=== PATIENT | male | born 1980 | race African-American/Black ===

== ENCOUNTER 2017-10-28 18:15 | Inpatient (IN) | payer SELFPAY ==
[~2017-10-28] VITALS: Ht 182.9 cm; Wt 75.0 kg
[~2017-10-28 18:15] MED LIST: Z.0.NO CURRENT MEDS
[2017-10-28 18:17] VITALS: BP 161/82; PULSE 60; RESP 17; TEMP 96.9; O2SAT 98
[2017-10-28] MEDS ORDERED: ONDANSETRON HCL 4 MG/2 ML VIAL IV PUSH ONE (18:45)
[2017-10-28] MEDS ORDERED: AMPICILLIN-SULBACTAM INJ 1,500 MG in SODIUM CHLORIDE 0.9% INJ 100 ML IV ONE (18:45)
[2017-10-28] MEDS ORDERED: MORPHINE SULFATE 4 MG/ML INJ IV PUSH ONE (18:45)
[2017-10-28] MEDS ORDERED: SODIUM CHLOR 0.9% 1000 ML INJ 1,000 ML IV SCH ×2 (18:45→21:57)
[2017-10-28 18:52] VITALS: BP 155/86; PULSE 54; RESP 16; O2SAT 99
[2017-10-28] MEDS ORDERED: TETANUS/DIPHTHERIA TOXOID ADULT 0.5 ML VIAL IM ONE (19:00)
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
[2017-10-28 19:15] LABS: AUTOMATED NEUTROPHIL # 2.7 TH/MM3 (1.8-7.7); BASOPHIL % 0.7 % (0.0-2.0); EOSINOPHIL # 0.1 TH/MM3 (0-0.4); EOSINOPHIL % 1.9 % (0.0-4.0); HEMOGLOBIN 14.1 GM/DL (13.0-17.0); LYMPH % 43.5 % (9.0-44.0); LYMPHOCYTE # 2.9 TH/MM3 (1.0-4.8); MEAN CELL VOLUME 89.5 FL (80.0-100.0); MEAN CORPUSCULAR HEMOGLOBIN 30.1 PG (27.0-34.0); MEAN CORPUSCULAR HGB CONC 33.7 % (32.0-36.0); MEAN PLATELET VOLUME 7.7 FL (7.0-11.0); MONO % 12.2 % (0.0-8.0); MONOCYTE # 0.8 TH/MM3 (0-0.9); NEUT % 41.7 % (16.0-70.0); PLATELET COUNT 301 TH/MM3 (150-450); RED BLOOD COUNT 4.69 MIL/MM3 (4.50-5.90); RED CELL DISTRIBUTION WIDTH 14.3 % (11.6-17.2); WHITE BLOOD COUNT 6.6 TH/MM3 (4.0-11.0)
[2017-10-28] MEDS ORDERED: KETOROLAC TROMETHAMINE 30 MG/ML (IVP) VIAL IV PUSH ONE (19:30)
[2017-10-28 19:34] LABS: ALBUMIN 4.1 GM/DL (3.4-5.0); AST (GOT) 26 U/L (15-37); BICARBONATE 27.8 MEQ/L (21.0-32.0); BLOOD UREA NITROGEN 11 MG/DL (7-18); CALCIUM 8.7 MG/DL (8.5-10.1); CHLORIDE 105 MEQ/L (98-107); CREATININE 0.92 MG/DL (0.60-1.30); GLOMERULAR FILTRATION RATE 113 ML/MIN (>89); GLUCOSE,RANDOM 124 MG/DL (74-106); SODIUM (NA) 142 MEQ/L (136-145)
[2017-10-28 19:35] LABS: ALT (GPT) 21 U/L (12-78)
[2017-10-28 19:37] LABS: ALKALINE PHOSPHATASE 71 U/L (45-117); TOTAL BILIRUBIN ADULT 0.5 MG/DL (0.2-1.0); TOTAL PROTEIN 7.5 GM/DL (6.4-8.2)
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
[2017-10-28 19:43] LABS: PROTHROMBIN TIME - PATIENT 10.5 SEC (9.8-11.6)
[2017-10-28 19:45] VITALS: BP 170/89; PULSE 55; RESP 14; RESP 16; O2SAT 100
[2017-10-28] MEDS ORDERED: ONDANSETRON HCL 4 MG/2 ML VIAL IVP PRN (22:00)
[2017-10-28] MEDS ORDERED: NALOXONE HCL 0.4 MG/ML AMP IV PUSH PRN (22:00)
[2017-10-28] MEDS ORDERED: LACTULOSE SYRUP 20 GM/30 ML CUP PO PRN (22:00)
[2017-10-28] MEDS ORDERED: MAGNESIUM HYDROXIDE SUSP 30 ML CUP PO PRN (22:00)
[2017-10-28] MEDS ORDERED: SODIUM CHLORIDE 0.9% FLUSH 10 ML FLUSH IV FLUSH PRN (22:00)
[2017-10-28] MEDS ORDERED: BISACODYL 10 MG SUPP RECTAL PRN (22:00)
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
[2017-10-28] MEDS: NS + KCL 20 MEQ INJ 1,000 ML IV SCH (23:09)
[2017-10-28] MEDS: MORPHINE SULFATE 4 MG/ML INJ IV PUSH PRN (23:10)
[2017-10-29] VITALS: BP 126/74; PULSE 83; RESP 17; TEMP 97.3; O2SAT 98
[2017-10-29] MEDS: MORPHINE SULFATE 4 MG/ML INJ IV PUSH PRN ×2 (03:29→06:24)
[2017-10-29 08:00] VITALS: BP 120/77; PULSE 61; RESP 17; TEMP 98.1; O2SAT 97
[2017-10-29] MEDS: SODIUM CHLORIDE 0.9% FLUSH 10 ML FLUSH IV FLUSH SCH ×2 (08:01→21:00)
[2017-10-29] MEDS: NS + KCL 20 MEQ INJ 1,000 ML IV SCH ×2 (08:21→18:15)
[2017-10-29 08:53] LABS: AUTOMATED NEUTROPHIL # 6.1 TH/MM3 (1.8-7.7); BASOPHIL % 0.2 % (0.0-2.0); EOSINOPHIL % 0.5 % (0.0-4.0); HEMATOCRIT 37.3 % (39.0-51.0); HEMOGLOBIN 12.6 GM/DL (13.0-17.0); LYMPH % 15.1 % (9.0-44.0); LYMPHOCYTE # 1.3 TH/MM3 (1.0-4.8); MEAN CELL VOLUME 89.7 FL (80.0-100.0); MEAN CORPUSCULAR HEMOGLOBIN 30.3 PG (27.0-34.0); MEAN CORPUSCULAR HGB CONC 33.8 % (32.0-36.0); MONO % 10.5 % (0.0-8.0); MONOCYTE # 0.9 TH/MM3 (0-0.9); NEUT % 73.7 % (16.0-70.0); PLATELET COUNT 229 TH/MM3 (150-450); RED BLOOD COUNT 4.16 MIL/MM3 (4.50-5.90); RED CELL DISTRIBUTION WIDTH 14.3 % (11.6-17.2); WHITE BLOOD COUNT 8.3 TH/MM3 (4.0-11.0)
[2017-10-29 09:15] LABS: BICARBONATE 25.2 MEQ/L (21.0-32.0); CREATININE 0.61 MG/DL (0.60-1.30)
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
[2017-10-29 12:00] VITALS: BP 122/72; PULSE 61; RESP 17; TEMP 98; O2SAT 100
[2017-10-29] MEDS ORDERED: PHENYLEPH/NS 1000 MCG/10 ML SYR IV ONE (12:00)
[2017-10-29] MEDS ORDERED: PROPOFOL 200 MG/20 ML AMP IV ONE (12:00)
[2017-10-29] MEDS ORDERED: NEOSTIGMINE 5 MG/5 ML SYRINGE IV PUSH ONE (12:00)
[2017-10-29] MEDS ORDERED: GLYCOPYRROLATE 1 MG/5 ML SYRINGE IV PUSH ONE (12:00)
[2017-10-29] MEDS ORDERED: DEXAMETHASONE SOD PHOS 4 MG/ML VIAL IV ONE (12:00)
[2017-10-29] MEDS ORDERED: LIDOCAINE HCL 1% PF 5 ML SYRINGE OTHER ONE (12:00)
[2017-10-29] MEDS ORDERED: KETOROLAC TROMETHAMINE 30 MG/ML (IVP) VIAL IV PUSH ONE (12:00)
[2017-10-29] MEDS ORDERED: LACTATED RINGER'S 1000 ML INJ 1,000 ML IV ONE (12:00)
[2017-10-29] MEDS ORDERED: ONDANSETRON HCL 4 MG/2 ML VIAL IV ONE (12:00)
[2017-10-29] MEDS ORDERED: SUCCINYLCHOLINE CHLORIDE 100 MG/5 ML SYRINGE IV PUSH ONE (12:00)
[2017-10-29] MEDS ORDERED: ROCURONIUM INJ 50 MG/5 ML SYRINGE IV PUSH ONE (12:00)
[2017-10-29] MEDS ORDERED: METOPROLOL TARTRATE 25 MG TAB PO PRN (14:00)
[2017-10-29] MEDS ORDERED: CHLORHEXIDINE GLUCONATE 2 % 1 PACK (2 CLOTHS) TOPICAL PRN (14:00)
[2017-10-29] MEDS ORDERED: LACTATED RINGER'S 1000 ML IV PRN (14:00)
[2017-10-29] MEDS ORDERED: POVIDONE IODINE 5% (ANTISEPSIS KIT) 4 APPLICATIONS EACH NARE PRN (14:00)
[2017-10-29] MEDS ORDERED: SODIUM CHLORID 0.9% 500 ML IV PRN (14:00)
[2017-10-29] MEDS ORDERED: ceFAZolin INJ 1,000 MG VIAL ONE (14:07)
[2017-10-29] MEDS: LIDOCAINE 1%/EPINEPHrine 1:100,000 SOLN 30 ML VIAL ONE (16:34)
[2017-10-29] MEDS ORDERED: DO NOT ADM ANY ANTICOAGULANT DRUGS PRN (17:26)
[2017-10-29] MEDS ORDERED: MIDAZOLAM HCL 2 MG/2 ML VIAL ONE (17:39)
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
[2017-10-29] MEDS ORDERED: oxyCODONE/ACETAMINOPHEN 7.5 MG/325 MG TAB PO PRN (19:45)
[2017-10-29] MEDS ORDERED: MORPHINE SULFATE 4 MG/ML INJ IV PRN (19:45)
[2017-10-29] MEDS ORDERED: methylPREDNISolone SOD SUCC 125 MG/2 ML VIAL IV ONE (19:45)
[2017-10-29 20:00] VITALS: BP 134/77; PULSE 56; RESP 18; TEMP 98.5; O2SAT 100
[2017-10-29] MEDS: DEXT 5%-NACL 0.9% 1000 ML INJ 1,000 ML IV SCH (20:30)
--- NOTE | 2017-10-29 22:12 | HHI.PR ---
Subjective Remarks Patient seen this morning prior to surgery. Reports pain continues. Denies any chest pain or shortness breath. Denies nausea or vomiting. Last bowel movement 2 days ago.denies constipation. Objective Vital Signs Date Time Temp Pulse Resp B/P (MAP) Pulse Ox O2 Delivery O2 Flow Rate FiO2 10/29/17 20:00 98.5 56 18 134/77 (96) 100 10/29/17 18:15 97.8 62 15 121/60 (80) 99 Room Air 10/29/17 18:00 68 17 123/57 (79) 99 Room Air 10/29/17 17:45 74 18 133/64 (87) 97 Room Air 10/29/17 17:30 77 18 129/62 (84) 99 Room Air 10/29/17 17:25 97.7 72 16 124/63 (83) 100 Simple Mask 6 10/29/17 12:00 98.0 61 17 122/72 (89) 100 10/29/17 08:00 98.1 61 17 120/77 (91) 97 10/29/17 00:00 97.3 83 17 126/74 (91) 98 10/28/17 22:16 I/O 10/28/17 10/28/17 10/28/17 10/29/17 10/29/17 10/29/17 07:00 15:00 23:00 07:00 15:00 23:00 Intake Total 1100 ml 1000 ml 1100 ml Output Total 25 ml Balance 1100 ml 1000 ml 1075 ml Intake IV Total 1100 ml 1000 ml Other 1100 ml Output Estimated Blood Loss 25 ml Result Diagram: 10/29/17 0730 10/29/17 0730 Objective Remarks GENERAL: patient lying in bed. Appears uncomfortable. SKIN: Warm and dry. HEAD: facial bruising. EYES: No scleral icterus. No injection or drainage. NECK: Supple, trachea midline. No JVD. CARDIOVASCULAR: Regular rate and rhythm without murmurs, gallops, or rubs. RESPIRATORY: Breath sounds equal bilaterally. No accessory muscle use. GASTROINTESTINAL: Abdomen soft, non-tender, nondistended. MUSCULOSKELETAL: No cyanosis, or edema. BACK: Nontender without obvious deformity. No CVA tenderness. A/P Assessment and Plan // Multiple mandibular fractures Maxillofacial CT significant for mildly displaced fractures throughout the anterior and left posterior mandible, right nasal bone, left maxillary sinus with hemorrhage in the left maxillary sinus Morphine for pain control OMFS consulted, appreciate assistance N.p.o. = Postoperative repair today 10/29. Postsurgical management as per surgical service. Appreciate assistance. //Hypokalemia NS +20 KCl Monitor BMP = Potassium 3.4 today. Repeat labs tomorrow. FEN NPO Electrolytes: As above NS +20 KCl at 100 cc/hour Discharge Planning pending maxillofacial surgery clearance. Zoran Borden MD October 29, 2017 22:12
[2017-10-30] VITALS: BP 135/72; PULSE 58; RESP 18; TEMP 98.9; O2SAT 100
[2017-10-30] MEDS: ceFAZolin 1,000 MG/NS 100 ML IV SCH ×4 (00:56→07:39)
[2017-10-30] MEDS: NS + KCL 20 MEQ INJ 1,000 ML IV SCH (03:37)
[2017-10-30 04:00] VITALS: BP 130/72; PULSE 60; RESP 18; TEMP 98.7; O2SAT 100
[2017-10-30] MEDS: MORPHINE SULFATE 4 MG/ML INJ IV PUSH PRN ×2 (04:06→11:31)
[2017-10-30] MEDS: DEXT 5%-NACL 0.9% 1000 ML INJ 1,000 ML IV SCH ×2 (05:45→06:49)
[2017-10-30 05:46] LABS: AUTOMATED NEUTROPHIL # 9.9 TH/MM3 (1.8-7.7); BASOPHIL % 0.1 % (0.0-2.0); HEMATOCRIT 38.7 % (39.0-51.0); LYMPH % 3.9 % (9.0-44.0); LYMPHOCYTE # 0.4 TH/MM3 (1.0-4.8); MEAN CELL VOLUME 88.8 FL (80.0-100.0); MEAN CORPUSCULAR HEMOGLOBIN 29.9 PG (27.0-34.0); MEAN CORPUSCULAR HGB CONC 33.7 % (32.0-36.0); MEAN PLATELET VOLUME 8.2 FL (7.0-11.0); MONO % 4.1 % (0.0-8.0); MONOCYTE # 0.4 TH/MM3 (0-0.9); NEUT % 91.9 % (16.0-70.0); PLATELET COUNT 236 TH/MM3 (150-450); RED BLOOD COUNT 4.36 MIL/MM3 (4.50-5.90); WHITE BLOOD COUNT 10.7 TH/MM3 (4.0-11.0)
[2017-10-30 06:22] LABS: BICARBONATE 26.6 MEQ/L (21.0-32.0); CALCIUM 8.3 MG/DL (8.5-10.1); CREATININE 0.7 MG/DL (0.60-1.30); PHOSPHORUS 2.6 MG/DL (2.5-4.9)
[2017-10-30] MEDS: SODIUM CHLORIDE 0.9% FLUSH 10 ML FLUSH IV FLUSH SCH (07:28)
[2017-10-30 08:00] VITALS: BP 131/82; PULSE 54; RESP 16; TEMP 97.3; O2SAT 98
[2017-10-30 12:00] VITALS: BP 133/75; PULSE 56; RESP 16; TEMP 97.2; O2SAT 99
[2017-10-30] MEDS ORDERED: OXYC1SOL5 PO (12:30)
[2017-10-30] MEDS ORDERED: AMOX400S3 PO (12:37)
[2017-11-02] MEDS ORDERED: HYDR1ELX PO (11:15)
--- NOTE | 2017-11-03 11:57 | HHI.PR ---
Subjective Remarks Date of service 10/30/17 Patient seen the morning of 10/30/17. Says he is feeling comfortable. Would like to go home. Objective Result Diagram: 10/30/17 0515 10/30/17 0515 Objective Remarks GENERAL: patient sitting up in bed. Appears uncomfortable. SKIN: Warm and dry. HEAD: facial bruising. EYES: No scleral icterus. No injection or drainage. NECK: Supple, trachea midline. No JVD. CARDIOVASCULAR: Regular rate and rhythm without murmurs, gallops, or rubs. RESPIRATORY: Breath sounds equal bilaterally. No accessory muscle use. GASTROINTESTINAL: Abdomen soft, non-tender, nondistended. MUSCULOSKELETAL: No cyanosis, or edema. BACK: Nontender without obvious deformity. No CVA tenderness. A/P Assessment and Plan // Multiple mandibular fractures Maxillofacial CT significant for mildly displaced fractures throughout the anterior and left posterior mandible, right nasal bone, left maxillary sinus with hemorrhage in the left maxillary sinus Morphine for pain control OMFS consulted, appreciate assistance N.p.o. = Postoperative repair today 10/29. Postsurgical management as per surgical service. Appreciate assistance. = 10/30. Patient doing well. If discharge by maxillofacial surgery. Surgeon recommends course of amoxicillin. Oxycodone suspension prescribed for pain. //Hypokalemia NS +20 KCl Monitor BMP = Potassium 3.4 today. Repeat labs tomorrow. = Resolved after replacement. Hello Discharge Planning discharge home on amoxicillin, oxycodone suspension for pain controlfollow-up with surgeon as outpatient. Zoran Borden MD November 03, 2017 11:56
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
== END 2017-10-30 14:09 | disposition home or self-care (01) | DRG 132 ==
LOC: NEPC 18:15 → EEVIPCON 20:49 → NEDA 20:49 → N07B 22:22
PROVIDERS: ADMIT Internal Medicine; ATTEND Internal Medicine
PROC: 0CQ0XZZ Repair Upper Lip, External Approach (ICD-10-PCS; 2017-10-28)
PROC: 0NSV35Z Reposition Left Mandible with External Fixation Device, Percutaneous Approach (ICD-10-PCS; 2017-10-29)
PROC: 0NSV04Z Reposition Left Mandible with Internal Fixation Device, Open Approach (ICD-10-PCS; principal; 2017-10-29 16:09)
DX: S02.66XA Fracture of symphysis of mandible, initial encounter for closed fracture (principal); E87.6 Hypokalemia; S02.40DA Maxillary fracture, left side, initial encounter for closed fracture; S02.620 Fracture of subcondylar process of mandible, unspecified side; S02.2XXA Fracture of nasal bones, initial encounter for closed fracture; S01.511A Laceration without foreign body of lip, initial encounter; K08.89 Other specified disorders of teeth and supporting structures; M26.34 Vertical displacement of fully erupted tooth or teeth; F12.90 Cannabis use, unspecified, uncomplicated; F17.210 Nicotine dependence, cigarettes, uncomplicated; Y04.2XXA Assault by strike against or bumped into by another person, initial encounter
CPT/HCPCS: 12051; 70486; 80048; 80053; 80069; 83735; 85025; 85610; 85730; 90471; 90714; 96361; 96365; 96375; C1713; J0295; J0330; J0690; J1100; J1885; J2250; J2270; J2370; J2405; J2710; J2930; J3010; J3480; J7030; J7042; J7120